=== PATIENT | male | born 2000 | race Hispanic/Latino ===

== ENCOUNTER 2021-01-04 11:02 | Emergency (ER) | payer OTHER ==
[~2021-01-04] VITALS: Ht 170.2 cm; Wt 83.3 kg
[2021-01-04] MEDS ORDERED: PROC1AER16 PR (13:40)
[2021-01-04 14:07] VITALS: BP 132/69
== END 2021-01-04 14:07 | disposition home or self-care (01) ==
LOC: M ED 11:02
DX: K64.8 Other hemorrhoids (principal); M54.9 Dorsalgia, unspecified